=== PATIENT | male | born 1990 | race Caucasian/White ===

== ENCOUNTER 2024-04-01 08:09 | Emergency (ER) | payer SELFPAY ==
[2024-04-01 08:17] VITALS: BP 154/103; PULSE 103; RESP 18; TEMP 36.6; O2SAT 98; BMI 25.1
--- NOTE | 2024-04-01 08:29 | CRLHL7_ITS ---
For Patients: As a result of the Cures Act, medical imaging exams and procedure reports are released immediately into your electronic medical record. You may view this report before your referring provider. If you have questions, please contact your health care provider. INDICATION: Injury and pain. TECHNIQUE: Chest and right ribs 3 views. COMPARISON: None. FINDINGS: Cardiovascular and mediastinum: Heart size and vasculature are normal in caliber and appearance. Mediastinum is within normal limits. Lungs and pleural spaces: Lungs are clear. No sign of infiltrate or mass. No sign of pleural effusion. Area of lucency along the right hemidiaphragm may be artifactual as this is not seen on other views. Bones and soft tissues: Detailed oblique images of the right ribs demonstrate no acute displaced fracture. There are old right rib fractures. IMPRESSION: No acute displaced rib fracture. Dictated by Nay Moreno MD @ 04/01/2024 9:00:34 AM (Electronically Signed)
[2024-04-01] MEDS: predniSONE 10 MG TABLET 50 MG PO (08:50)
--- NOTE | 2024-04-01 08:51 | ED_ITS ---
HPI - General Adult General Chief complaint: Rib Pain Stated complaint: Rib pain thinks its out of place Time Seen by Provider: 04/01/24 08:10 History of Present Illness HPI narrative: Patient is a 30-year-old male who strain in self and felt a popping sensation is lower ribcage couple of a few days ago. He has had this happen before. Usually gets better. He definitely has some point tenderness along his lower rib cage on the right. When takes deep breath hurts in that area as well. He has had no fever chills cough. No chest pain. He is generally healthy. He does report he smokes and drinks. But does not take any medications at home, has no known drug allergies. Has had no bleeding or clotting problems. No leg swelling or edema. No shortness of breath. Related Data Previous Rx's ?Medication ?Instructions ?Recorded ketorolac 10 mg tablet 10 mg PO Q8H PRN pain 3 days #10 04/01/24 tabs prednisone 20 mg tablet 20 mg PO BID #10 tabs 04/01/24 Allergies Allergy/AdvReac Type Severity Reaction Status Date / Time No Known Drug Allergies Allergy Verified 04/01/24 08:22 Review of Systems Status of ROS: Reports: 6 or more systems reviewed and unremarkable except as noted in History and below PFSH [facility] Social History Smoking Status: Current every day smoker What tobacco products do you use: cigarettes How often do you have a drink containing alcohol: never How often do you have six or more drinks on one occasion: Never AUDIT-C Alcohol total score: 0 Non-prescribed substance use: denies use service: No Exam Narrative: Exam Narrative: Objective patient's blood pressure slightly elevated, his O2 sat is excellent at 90% He is alert orient x3 no distress He has got tenderness along the right costochondral margin the lower ribcage. It is definitely point tender. Abdomen is benign Extremities good perfusion neurologic nonfocal, patient is ambulatory. Lungs are clear Heart rhythm regular without murmur Const: Vital Signs, click to edit/add: Vital Signs - 24 hr 04/01/24 08:17 Temperature 98 F Pulse Rate [Left P ulse Oximeter] 103 H Respiratory Rate 18 Blood Pressure [Le ft Upper Arm] 154/103 H Pulse Oximetry 98 Oxygen Delivery Me thod Room Air Course Vital Signs Vital signs: Initial Vital Signs Temperature 98 F 04/01/24 08:17 Temperature Source Temporal Artery Scan 04/01/24 08:17 Pulse Rate 103 H 04/01/24 08:17 Pulse Rhythm Regular 04/01/24 08:17 Pulse Strength 3+ Normal 04/01/24 08:17 Respiratory Rate 18 04/01/24 08:17 Blood Pressure 154/103 H 04/01/24 08:17 Blood Pressure Mean 120 H 04/01/24 08:17 Blood Pressure Position Standing 04/01/24 08:17 Pulse Oximetry 98 04/01/24 08:17 Oxygen Delivery Method Room Air 04/01/24 08:17 Vital Signs Temperature 98 F 04/01/24 08:17 Pulse Rate 103 H 04/01/24 08:17 Respiratory Rate 18 04/01/24 08:17 Blood Pressure 154/103 H 04/01/24 08:17 Pulse Oximetry 98 04/01/24 08:17 Oxygen Delivery Method Room Air 04/01/24 08:17 Temperature 98 F 04/01/24 08:17 Pulse Rate 103 H 04/01/24 08:17 Respiratory Rate 18 04/01/24 08:17 Blood Pressure 154/103 H 04/01/24 08:17 Pulse Oximetry 98 04/01/24 08:17 Oxygen Delivery Method Room Air 04/01/24 08:17 Medications Administered Medications: Discontinued Medications Generic Name Dose Route Start Last Admin Trade Name Freq PRN Reason Stop Dose Admin Ketorolac Tromethamine 10 mg 04/01/24 08:29 04/01/24 08:57 Ketorolac 10 Mg Tablet PO 04/01/24 08:30 10 mg ONCE ONE Administration Prednisone 50 mg 04/01/24 08:29 04/01/24 08:50 Prednisone 10 Mg Tablet PO 04/01/24 08:30 50 mg ONCE ONE Administration Medical Decision Making MDM Narrative Medical decision making narrative: 33-year-old male with right costochondral margin rib pain. The patient has point tenderness. He strained himself and felt a popping sensation in the lower ribs. He probably hurt a cartilaginous area of his lower rib cage. I gave him some Toradol and prednisone and will continue prednisone 20 b.i.d. x5 days and Toradol as needed over 3 days. Ice the affected area, fluids, x-ray of his chest by my review shows old healed rib fractures on the right but no obvious new fracture or pneumothorax. He can recheck with regular doctor not improving, light activity over the next several days. Discharge Plan Discharge Clinical Impression: Acute chest wall pain Patient Disposition: Home, Self-Care Condition: Stable Additional Instructions: Light activity for few days, avoid twisting or bending, ice to the affected area of the rib cage 5-10 minutes 3 to 4 times a day. We do this for several days. Follow up with regular doctor in 5-7 days. Return to ED sooner problems or concerns. Activity Level: Light activity Discharge Diet: Regular Prescriptions: New prednisone 20 mg tablet 20 mg PO BID Qty: 10 0RF ketorolac 10 mg tablet 10 mg PO Q8H PRN (Reason: pain) 3 Days Qty: 10 0RF Stand Alone Forms: MyHealth Info Instructions
[2024-04-01] MEDS: KETOROLAC 10 MG TABLET PO (08:57)
== END 2024-04-01 09:00 | disposition home or self-care (01) ==
PROVIDERS: Emergency Provider Family Medicine
DX: R07.89 Other chest pain (principal)
CPT/HCPCS: 71101; 99284; A9270; J7512